=== PATIENT | female | born 1990 | race Caucasian/White ===

== ENCOUNTER 2025-01-30 10:57 | Emergency (ER) | payer OTHER, SELFPAY ==
--- NOTE | ~2025-01-30 | XR_ITS ---
EXAMINATION: XR chest 2V, 01/30/2025 12:05 TERRITORY SALES CONSULTANT HISTORY: shortness of breath COMPARISON: No comparisons available. Technique: 2 views obtained. Findings: The lungs are clear, no effusion. No pneumothorax. Heart is normal size. Mediastinal and hilar contours are within normal limits. Bony thorax no acute abnormality. Impression: No acute cardiopulmonary abnormality. Reviewed, dictated and finalized at location P. ITORY SALES CONSULTANT Impression: No acute cardiopulmonary abnormality.
[2025-01-30 11:02] VITALS: BP 124/81; PULSE 141; RESP 18; TEMP 36.6; O2SAT 100
--- NOTE | 2025-01-30 11:09 | ECG_ITS ---
Test Date: 2025-01-30 11:14:59 Measurements Intervals [place] Rate: 137 P: 37 AR: 141 QRS: 69 QRSD: 90 T: 32 QT: 370 QTc: 560 Interpretive Statements SINUS TACHYCARDIA DELAYED PRECORDIAL R/S TRANSITION NONSPECIFIC T-WAVE ABNORMALITY- DIFFUSE LEADS BASELINE ARTIFACT- I, III, AVR, AVL ABNORMAL ECG No previous ECG available for comparison Electronically Signed On 01-30-2025 11:19:23 BOAT PILOT by Aris Sahu D.O.
--- OUTSIDE RECORDS SUMMARY | 2025-01-30 12:02 | XMS_ITS | Clinical Summary ---
Author Organization [facility] Address [address] [place] [id number] Care Team Providers Care Furnace Setter Name Role Phone Linda Niño MD Unavailable [phone] Nancy Marquez MD Primary Care Provide r Mansi Modi NP Unavailable [phone] Allergies Active Allergy Reactions Criticality Noted Date Comments Cephalexin Hives Medium 12/23/2021 Clindamycin Hives Medium 12/24/2021 Hydrocodone-Acetaminophen Hives Medium 02/16/2024 Latex Rash Medium 12/24/2021 Permethrin Hives Medium 12/24/2021 Pyrethrins Hives Medium 12/24/2021 Medications famotidine (PEPCID) 20 mg tabletIndication s:Dyspepsia Take 2 tablets (40 mg total) by mouth 2 (two) times a day 11/14/19 22 Active fexofenadine (IMMANUEL) 180 mg tablet Take 1 tablet (180 mg total) by mouth daily Active olopatadine (PATADAY) 0.2 % ophthalmic solution INSTILL 1 DROP IN BOTH EYES DAILY 2.5 mL 11 10/25/19 24 Active albuterol HFA (ProAir HFA) 90 mcg/actuation inhalerIndicatio ns:Mild intermittent asthma without complication Inhale 2 puffs every 4 (four) hours as needed for wheezing or shortness of breath 8.5 g 1 03/28/19 25 026 Active metoprolol XL (TOPROL-XL) 25 mg extended release tablet Take 1 tablet (25 mg total) by mouth daily 90 tablet 1 12/12/19 25 026 Active adalimumab-adaz 40 mg/0.4 mL pen injectorIndicati ons:Arthralgia, unspecified joint,Uveitis INJECT 40MG UNDER THE SKIN EVERY 14 DAYS 2.4 mL 12/21/19 25 Active busPIRone (BUSPAR) 5 mg tablet Take 1 tablet (5 mg total) by mouth 3 (three) times a day 90 tablet 1 12/23/19 25 Active azaTHIOprine (IMURAN) 50 mg tabletIndication s:autoimmune disease Take 0.5 tablets (25 mg total) by mouth daily 15 tablet 2 01/11/20 25 026 Active varicella-zoster (SHINGRIX) 50 mcg/0.5 mL vaccineIndicatio ns:Prevention of Herpes Zoster,Immunosup pressed patient. Inject 0.5 mL into the muscle as instructed every 30 (thirty) days for 2 doses 0.5 mL 1 01/13/20 25 025 Active predniSONE (DELTASONE) 5 mg tablet Take 1 tablet (5 mg) by mouth daily for 20 days 20 tablet 01/09/20 25 025 predniSONE (DELTASONE) 1 mg tablet Take 4 tablets (4 mg) by mouth daily for 31 days, THEN 3 tablets (3 mg) daily for 31 days, THEN 2 tablets (2 mg) daily for 28 days, THEN 1 tablet (1 mg) daily. 304 tablet 01/30/20 25 025 Discontinu ed(Error) Active Problems Problem Noted Date Diagnosed Date Class 1 obesity due to exces s calories without serious comorbidity with body mass index (BMI) of 34.0 to 34.9 in adult 03/28/2024 Assessment & Plan (12/11/2024 3:35 PM CDT): Assessment & Plan (06/02/2024 8:32 AM CDT): She was counseled on the importance of maintaining a healthy weight and the risks of obesity. Weight loss recommended. Assessment & Plan (03/28/2024 3:32 PM CLINIC SCHEDULER): She was counseled on the importance of maintaining a healthy weight and the risks of obesity. Weight loss recommended. Encourage 150min/ week of exercise Encourage 1500 calories in a day for weight loss Tachycardia with heart rate 100-120 beats per mi nute 03/28/2024 Assessment & Plan (12/11/2024 3:35 PM CDT): Assessment & Plan (06/02/2024 8:30 AM CDT): Chronic At goal Cont metoprolol F/u in 6 months Assessment & Plan (03/28/2024 3:58 PM CLINIC SCHEDULER): New concern Associated symptoms Chronic Not at goal Recommend cutting back on caffeine Could also be anxiety induced Will get 48hr holter monitor to evaluate for an arrhythmia Cmp and tsh ordered F/u in 2 months Anxiety 03/28/2024 Assessment & Plan (12/11/2024 3:35 PM CDT): Chronic buspar 5mg 3x/day Denies si/hi Assessment & Plan (06/01/2024 12:40 PM CDT): Chronic buspar 5mg 3x/day Denies si/hi Encourage exercise to help reduce anxiety Referral to therapy given last visit Assessment & Plan (03/28/2024 4:01 PM CLINIC SCHEDULER): Chronic Not at goal ISHAN-7 Feeling nervous, anxious, or on edge: Nearly every day Not being able to stop or control worrying: Nearly every day Worrying too much about different things: Nearly every day Trouble relaxing: Nearly every day Being so restless that it's hard to sit still: Several days Becoming easily annoyed or irritable: Nearly every day Feeling afraid as if something awful might happen: Several days Total Score: 17 Will start buspar 5mg daily for 1 week and go up to 3x/day Denies si/hi Encourage exercise to help reduce anxiety Referral to therapy given F/u in 2 months for monitoring Acute pain of both knees 09/09/2022 Assessment & Plan (09/09/2022 5:00 PM CDT): New Possibly result of recent steroid use L>R Will get xray of the left knee as that is where she feels the nodule Referral to physical therapy continue ibuprofen prn F/u if no improvement. Can consider pain management Allergic conjunctivitis of both eyes 07/14/2022 Assessment & Plan (08/18/2022 10:15 AM CDT): Reduce pred forte (PF) to PRN use Assessment & Plan (08/04/2022 1:25 PM CDT): Decrease pred forte (PF) to daily x 1 week, then once every other day until see Assessment & Plan (07/23/2022 9:24 AM CDT): Signs appear more allergic in nature. No proptois. Decrease pred forte (PF) to BID both eyes (OU) Cont Pataday every day (QD) OU Migraine without aura and wi th status migrainosus, not intractable 06/29/2022 Assessment & Plan (03/27/2024 12:33 PM CLINIC SCHEDULER): Stable / clinically quiescent. Will continue to monitor. Assessment & Plan (06/29/2022 10:17 AM CDT): Stable / clinically quiescent. Will continue to monitor. Mild intermittent asthma without complication Assessment & Plan (03/27/2024 12:34 PM CLINIC SCHEDULER): She has not needed an inhaler in years Continue albuterol inhaler for as needed Assessment & Plan (06/29/2022 10:19 AM CDT): She has not needed an inhaler in years Will send an albuterol inhaler for as needed Urticaria 06/29/2022 Assessment & Plan (06/29/2022 10:43 AM CDT): Stable Continue with immanuel and benadryl Follow-up with screw driver operator. Encounter for wellness examination 06/25/2022 Assessment & Plan (12/11/2024 3:35 PM CDT): Orders: CBC with auto differential; Future Comprehensive metabolic panel; Future Hemoglobin A1c; Future Lipid panel; Future Thyroid Function Barnwell; Future Assessment & Plan (03/28/2024 4:02 PM CLINIC SCHEDULER): Order CBC, cmp, lipid, hgb a1c, TSH w/ reflex to t4 Pap smears: managed by ob F/u in 1 year for annual Assessment & Plan (06/29/2022 10:43 AM CDT): Ordered CBC, cmp, lipid, hgb a1c, hiv TSH w/ reflex to t4 Pcv20:will consider it at next visit. Declines today She has been vaccinated for chicken pox with both dosage Pap smears: managed by ob, will get records F/u in 1 year for annual Bilateral ocular hypertension 05/01/2022 Overview (04/03/2024): Diagnosis: OHTN OU Tmax: Gonio: Open OU 01/31/2024 Pachy: 606/606 Last Nguyen visual field (HVF): Full OU 01/31/2024 Last RNFL: 101/106 04/03/2024 Assessment & Plan (01/08/2025 4:22 PM CLINIC SCHEDULER): IOP is at target today given thick pachy. Target of 30 OU - HVF due 01/2025, RNFL 04/2025 Assessment & Plan (10/06/2024 10:26 AM CDT): Previously elevated IOP (28 mmHg) managed with latanoprost in the past but not currently on any medications. Current OCT and visual field tests are normal. Corneal thickness may cause overestimation of IOP. - Reinitiate latanoprost if IOP exceeds 30 mmHg - HVF due 01/2025, RNFL 04/2025 Assessment & Plan (04/04/2024 8:37 PM CLINIC SCHEDULER): Previously elevated IOP (28 mmHg) managed with latanoprost. Current OCT and visual field tests are normal. Corneal thickness may cause overestimation of IOP. Decision to discontinue latanoprost and monitor IOP, with potential reinitiation if IOP exceeds 30 mmHg due to long-term risks. - Discontinue latanoprost in both eyes - Monitor IOP and visual field for any progression - Reinitiate latanoprost if IOP exceeds 30 mmHg - HVF due 01/2025, RNFL 04/2025 Assessment & Plan (02/01/2024 10:23 PM CLINIC SCHEDULER): Thick corneas, normal HVF today. If RNFL full will stop latanprost and observe Assessment & Plan (10/15/2023 1:29 PM CDT): Her IOP is elevated to 28 OU today. Unclear what her target should be, we will need to get an RNFL and pachymetry, as well as a repeat visual valle. Given current IOP, discussed treatment verses observation. We will start latanoprost once a day in both eyes. Assessment & Plan (02/23/2023 8:30 AM CLINIC SCHEDULER): IOPs adequate off drops, monitor Assessment & Plan (09/22/2022 9:01 AM CDT): Elevated today without glaucomatous damage on exam Using maxitrol BID and forgot Cosopt this am Cosopt levi PLAN Stop maxitrol as above Continue cosopt BID Stop Cosopt and try latanoprost qhs Assessment & Plan (08/18/2022 10:16 AM CDT): Cont Cosopt BID both eyes (OU) until next visit Assessment & Plan (08/04/2022 8:22 AM CDT): Cont Cosopt BID OU Assessment & Plan (07/14/2022 10:26 AM CDT): Cont Cosopt BID OU Assessment & Plan (07/01/2022 2:31 PM CDT): Restart Cosopt BID OU Assessment & Plan (05/01/2022 8:04 AM CLINIC SCHEDULER): Start Cosopt BID OU Have eye pressure checked in 2-3 weeks, will send letter to Dr. Quinn to see if he can do this, otherwise, we will have her come back up here. High risk medication use 04/17/2022 Assessment & Plan (09/22/2022 9:02 AM CDT): Lab Results Component Value Date WBC 7.0 07/07/2022 HGB 13.4 07/07/2022 LABPLAT 293 07/07/2022 CREATININE 0.70 07/07/2022 AST 24 07/07/2022 ALT 15 07/07/2022 Tb test NEG 12/26/21 Lab Results Component Value Date HEPBCAB Nonreactive 07/07/2022 HEPCAB Nonreactive 07/07/2022 PLAN HBV/HCV screening CBC, CMP q2-3 months Assessment & Plan (07/01/2022 10:01 AM CDT): Lab Results Component Value Date WBC 4.9 12/26/2021 HGB 12.9 12/26/2021 LABPLAT 244 12/26/2021 CREATININE 0.66 12/26/2021 AST 18 12/26/2021 ALT 24 12/26/2021 Tb test NEG 12/26/21 No results found for: HAV, HEPAIGM, HEPBIGM, HEPBCAB, HBEAG, HEPCAB PLAN HBV/HCV screening CBC, CMP q2-3 months Assessment & Plan (05/02/2022 10:37 AM CLINIC SCHEDULER): Lab Results Component Value Date WBC 4.9 12/26/2021 HGB 12.9 12/26/2021 LABPLAT 244 12/26/2021 CREATININE 0.66 12/26/2021 AST 18 12/26/2021 ALT 24 12/26/2021 Tb test NEG 12/26/21 No results found for: HAV, HEPAIGM, HEPBIGM, HEPBCAB, HBEAG, HEPCAB PLAN Take Oscal+D, or similar while on prednisone Call us with worsening fatigue after smaller dose Humira HBV/HCV screening CBC, CMP q2-3 months Assessment & Plan (04/17/2022 3:12 PM CLINIC SCHEDULER): Lab Results Component Value Date WBC 4.9 12/26/2021 HGB 12.9 12/26/2021 LABPLAT 244 12/26/2021 CREATININE 0.66 12/26/2021 AST 18 12/26/2021 ALT 24 12/26/2021 Tb test 12/26/21 No results found for: HAV, HEPAIGM, HEPBIGM, HEPBCAB, HBEAG, HEPCAB PLAN Take Oscal+D, or similar while on prednisone CBC, CMP q2-3 months Will get HBV, HCV with next labs Orbital inflammation, chronic 12/26/2021 Assessment & Plan (01/08/2025 4:21 PM CLINIC SCHEDULER): She has no active inflammation today, just stopped prednisone this weekend. Discussed that it would be better to taper more slowly to give IMT time to work and to ensure that if there is a recurrence it will be mild. Start prednisone 5 mg and taper by 1 mg on the 1st of each month. Continue adalimumab weekly. Will discuss with Dr. Jaramillo whether there is utility in continuing azathioprine 50 mg daily to prevent ADA. Assessment & Plan (10/06/2024 10:25 AM CDT): She has improvement in her eyelid edema after starting oral prednisone. This is a very unusual appearance for orbital inflammation, but is consistent with her previous episode. She has previously done well on adalimumab, I would recommend restarting this. We are working with rheumatology to get insurance authorization for that. Use 60 mg prednisone for 2 weeks, then 50 mg for 1 week, then 40 mg for 1 week, then 30 mg for 1 week, then 25 mg for 1 week, then 20 mg for 1 week, then 15 mg for 1 week, then 12.5 mg for 1 week, then 10 mg for 1 week, then continue 7.5 mg thereafter Assessment & Plan (09/04/2024 4:35 PM CDT): She does have eyelid edema but no proptosis, double vision, or chemosis suggestive of orbital inflammation. Recommend cold compresses BID to help with swelling. Will re-evaluate in 1 month to ensure that this resolves. Assessment & Plan (04/04/2024 8:37 PM CLINIC SCHEDULER): She has no active inflammation today. Consider taper of adalimumab in coordination with licensed massage practitioner. Recommend gradual taper based on evidence in uveitis, would do this in June - Recommend taper of adalimumab in June by spacing doses to every three weeks for three months, then every four weeks for three months, then discontinue Assessment & Plan (03/27/2024 12:33 PM CLINIC SCHEDULER): Cont following with specialist for management Assessment & Plan (02/01/2024 10:24 PM CLINIC SCHEDULER): She has no active inflammation today on adalimumab every other week, I would prefer to continue on adalimumab until June of 2024, can consider weaning at this point. Assessment & Plan (10/15/2023 1:30 PM CDT): She has no active inflammation today. She has been off of adalimumab, but is going to restart this through Rheumatology. Would prefer to continue on adalimumab until June of 2024, can consider weaning at this point. Assessment & Plan (02/23/2023 8:26 AM CLINIC SCHEDULER): Quiet on Humira, no lid edema. Schedule next visit with Dr. Mathur. 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 S/p orbitotomy biopsy 01/27/22 which showed fairly nonspecific inflammation, slightly more B than T cells and relatively elevated IgG4 Inactive today on Humira since 04/2022 PLAN continue Humira q2w Assessment & Plan (08/04/2022 1:23 PM CDT): undifferentiated vs IgG4 (status post (s/p) orbitotomy biopsy 01/27/22) no proptosis patient has confounding lid disease decrease pred forte (PF) to daily x 1 wk, then decrease to once every other day until seen Assessment & Plan (07/01/2022 10:01 AM CDT): 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 We decided to continue Humira for now. 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 After next Humira dose, if your inflammation is stable, reduce prednisone to 15mg daily for 2 weeks, then 10mg daily if inflammation is still improving Humira preferred given speed and efficacy. 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 Assessment & Plan (08/04/2022 1:24 PM CDT): Complete course of azithromycin Rec pfats prn Cont maxitrol to the base of the lid margins bid Periorbital edema of both eyes 07/14/2022 10/06/2024 Assessment & Plan (10/23/2022 4:31 PM CDT): Denies usage new skin cream/products, uses Cetaphil Assessment & Plan (07/23/2022 9:24 AM CDT): Cold compresses nightly, cont Benadryl qhs Assessment & Plan (07/14/2022 10:26 AM CDT): left eye (OS)>OD, h/o chronic orbital inflammation. Exam most c/w allergies today papillary response left eye (OS)>>OD. No proptosis. Full eoms. Start pred forte (PF) QID both eyes (OU), rec Benadryl at bedtime (qhs) + cold compresses nightly. Pt ed to call if no improvement (NI)/worsening sx over the next 24-48 hours. Orbital disorder 01/02/2022 02/01/2024 Overview (01/02/2022): Added automatically from request for surgery [id number] Encounters Date Type Department Care Team Description 01/29/2025 Orders Only [facility] Medicine Rheumatology [address] [facility] 5th [place] [address] [place] [address] Tri Jaramillo MD Leg swelling (Primary Dx) 01/15/2025 Telephone [facility] Medicine Cardiology [address] [facility] [address] [place] [address] [place] [address] Nancy Modi 01/12/2025 Results Follow-Up [facility] Medicine Rheumatology [address] [facility] [address] [place] [address] [place] [address] Tri Jaramillo MD CBC with auto differential, Comprehensive metabolic panel 01/12/2025 Orders Only [facility] Medicine Rheumatology [address] [place] [address] [place] [address] Tri Jaramillo MD 01/10/2025 8:46 AM CLINIC SCHEDULER - 01/10/2025 11:59 PM CLINIC SCHEDULER Hospital Encounter [facility] [address] [place] [address] History of multiple miscarriages Discharge Disposition: Discharge to home or self care 01/10/2025 8:30 AM CLINIC SCHEDULER Lab [facility] Medicine Endocrinology Metabolism and Lipid [address] [place] [address] [place] [address] High risk medication use 01/10/2025 8:00 AM CLINIC SCHEDULER Office Visit [facility] Medicine Rheumatology [address] [place] [address] [place] [address] Tri Jaramillo MD Orbital inflammation, chronic (Primary Dx); Uveitis; High risk medication use; Encounter for administration of vaccine; History of multiple miscarriages 01/08/2025 3:30 PM CLINIC SCHEDULER Office Visit [facility] Medicine Ophthalmology [address] [place] [id number] Piotr Mathur MD Orbital inflammation, chronic (Primary Dx); Bilateral ocular hypertension 12/11/2024 2:00 PM CDT Office Visit [facility] at [address] [place] [address] Nancy Lofton MD Tachycardia with heart rate 100-120 beats per minute (Primary Dx); Anxiety; Class 1 obesity due to excess calories without serious comorbidity with body mass index (BMI) of 34.0 to 34.9 in adult; Encounter for wellness examination 12/11/2024 Orders Only [facility] at [address] [place] [address] Nancy Lofton MD Tachycardia with heart rate 100-120 beats per minute (Primary Dx); History of chest pain 11/22/2024 Telephone [facility] [address] [facility] [address] [place] [address] Santos [facility] from Last 3 Months Immunizations Immunization Administration Dates Next Due Influenza, Unspecified 12/11/2024(Deferr ed: Patient Refused),06/02/2024(Deferred: Patient Refused),03/28/2024(Deferred: Patient Refused),12/19/2023(Deferred: Patient Refused),12/18/2022(Deferred: Patient Refused),12/18/2022(Deferred: Patient Refused),09/09/2022(Deferred: Patient Refused),05/28/2022(Deferred: Patient Refused),03/01/2022(Deferred: Patient Refused),09/29/2021(Deferred: Patient Refused) Pneumococcal Conjugate Pcv20 01/10/2025,10/14/19 23 Tdap 01/28/2023 Surgical History Surgery Date Site/Laterality Comments TONSILLECTOMY AND ADENOIDECTOMY 1 yo SALPINGECTOMY ectopic 2015 ORBITOTOMY 01/27/2022 Right ABDOMINAL SURGERY laparoscopic salpingectomy WISDOM TOOTH EXTRACTION 02/03/2024 Medical History Medical History Date Comments Preseptal cellulitis of right eye Migraine Asthma Asthma due to environmental allergies PONV (postoperative nausea and vomiting) Anxiety Teen years Sleep apnea was 2/3 yrs old 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 Menstrual problem teen years GERD (gastroesophageal reflux disease) LAST FEW YEARS Arthritis Endometriosis Ovarian cyst Family History Medical History Relation Name Comments Drug abuse Brother david green Alcohol abuse Father chey green Drug abuse Father chey green Hepatitis Father chey green Cancer Father's Brother raul green Leukemia Father's Brother raul green Kidney disease Maternal Grandfather jaye wilder Allergies Maternal Grandmother cindy wilder Anemia Maternal Grandmother cindy wilder Arthritis Maternal Grandmother cindy wilder Asthma Maternal Grandmother cindy wilder Diabetes Maternal Grandmother cindy wilder Heart disease Maternal Grandmother cindy wilder Heart failure Maternal Grandmother cindy wilder Hypertension Maternal Grandmother cindy wilder Miscarriages / Stillbirths Maternal Grandmother cindy wilder Rheum arthritis Maternal Grandmother cindy wilder Allergy (severe) Mother zay taff Arthritis Mother zay taff Asthma Mother zay taff COPD Mother zay taff Cataracts Mother zay taff Cholelithiasis Mother zay taff Diabetes Mother zay taff Diverticulosis Mother zay taff Glaucoma Mother zay taff Hypertension Mother zay taff Miscarriages / Stillbirths Mother zay taff Rashes / Skin problems Mother zay taff Asthma Mother's Sister 1 donny wilder Hypertension Mother's Sister 1 donny wilder defects Mother's Sister 2 Crissy Wilder Developmental delay Mother's Sister 2 Crissy Wilder Glaucoma Other Arthritis Paternal Grandfather chey taff sr Hearing loss Paternal Grandfather chey tafsanti sr Stroke Paternal Grandmother eunice combs taff Allergies Sister nancy tonglisandro Allergy (severe) Sister nancy tonglisandro Anemia Sister nancy tonglisandro Diverticulosis Sister nancy tongay Rashes / Skin problems Sister nancy tongay Ulcerative colitis Sister nancy tonglisandro Anesthesia problems Neg Hx Relation Name Status Comments Brother david green Father chey green Father's Brother raul green Maternal Grandfather jaye wilder Maternal Grandmother cindy wilder Mother zay taff Mother's Sister 1 donny wilder Mother's Sister 2 Crissysindy Sernaton Other Paternal Grandfather chey taff sr Paternal Grandmother eunice combs taff Sister nancy san Social History Tobacco Use Types Packs/Day Years Used Date Smoking Tobacco: Former Cigarettes Q uit: 01/07/2005 Passive Smoke Exposure: Past Smokeless Tobacco: Never Tobacco Cessation:Counseling Given: Not Answered Social Connection and Isolation Panel Answer Date Recorded In a typical week, how many times do you talk on the phone with family, friends, or neighbors? More than three times a week 07/27/2023 How often do you get togethe r with friends or relatives? Once a week 07/27/2023 How often do you attend chur ch or congregation services? Never 07/27/2023 Do you belong to any clubs o r organizations such as christian groups, unions, fraternal or athletic groups, or school groups? No 07/27/2023 How often do you attend meet ings of the clubs or organizations you belong to? Not asked 07/27/2023 Are you , , di vorced, , never , or living with a partner? Living with partner 07/27/2023 AUDIT-C Answer Date Recorded Q1: How often do you have a drink containing alcohol? Never 08/30/2024 Q2: How many drinks containi ng alcohol do you have on a typical day when you are drinking? Patient does not drink Q3: How often do you have si x or more drinks on one occasion? Never 08/30/2024 Overall Financial Resource Strain (CARDIA) Answe r Date Recorded How hard is it for you to pa y for the very basics like food, housing, medical care, and heating? Not very hard 07/27/2023 PHQ-2 Answer Date Recorded PHQ-2 Total Score (If total score is 3 or more points, staff should administer the PHQ-9) 0 12/11/2024 [facility] - Occupational Stress Questionnaire Answer Date Recorded Do you feel stress - tense, restless, nervous, or anxious, or unable to sleep at night because your mind is troubled all the time - these days? Only a little 07/27/2023 Exercise Vital Sign Answer Date Recorde d On average, how many days pe r week do you engage in moderate to strenuous exercise (like a brisk walk)? 5 days On average, how many minutes do you engage in exercise at this level? Patient declined 07/27/2023 Hunger Vital Sign Answer Date Recorded Within the past 12 months, y ou worried that your food would run out before you got the money to buy more. Never true 07/27/19 24 Within the past 12 months, t he food you bought just didn't last and you didn't have money to get more. Never true 07/27/2023 PRAPARE - Transportation Answer Date Re corded In the past 12 months, has l ack of transportation kept you from medical appointments or from getting medications? No 06/30 In the past 12 months, has l ack of transportation kept you from meetings, work, or from getting things needed for daily living? No 07/27/2023 Housing Stability Vital Sign Answer Enmanuel e Recorded In the last 12 months, was t here a time when you were not able to pay the mortgage or rent on time? No 01/25/2023 In the last 12 months, how many places have you lived? 1 01/25/2023 In the last 12 months, was t here a time when you did not have a steady place to sleep or slept in a long term (including now)? 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 Not on file Not on file Obstetrics History Para Term AB IAB SAB Ectopic Multiple Livin g Live Births 4 4 3 1 Date Outcome GA Total Labor Labor/2nd/3rd Weight Sex Type Anes PTL Marianne A1 A5 Name Clin SAB SAB SAB Ectopic Last Filed Vital Signs Vital Sign Reading Time Taken Comments Blood Pressure 136/82 01/10/2025 7:54 AM CLINIC SCHEDULER Pulse 116 01/10/2025 7:54 AM CLINIC SCHEDULER Temperature 36.7 C (98.1 F) 01/10/2025 7:54 AM CLINIC SCHEDULER Respiratory Rate 16 12/11/2024 1:45 PM CDT Oxygen Saturation 99% 12/11/2024 1:45 PM CDT Inhaled Oxygen Concentration - - Weight 84.4 kg (186 lb) 01/10/2025 7:54 AM CLINIC SCHEDULER Height 154.9 cm (5' 1) 01/10/2025 7:54 AM CLINIC SCHEDULER Body Mass Index 35.14 01/10/2025 7:54 AM CLINIC SCHEDULER Plan of Treatment Health Maintenance Due Date Last Done Comments Cervical Cancer Screening 1988 Zoster Vaccine (1 of 2) 08/03/2007 Regular Well Visit/Exam 18-64 03/28/2025 03/28/2024, 06/29/2022 Influenza Vaccine (#1) 2025 Postp oned from 10/30/2024 (Patient declined, but will receive in the future) Depression Screening 12/11/2025 12/11/2024, 06/02/2024, 03/28/2024, Additional history exists HPV Vaccines (1 - 3-dose SCDM series) 12/11/2025 Postponed from 08/03/2015 (Patient declined, but will receive in the future) DTaP/Tdap/Td Vaccine (2 - Td or Tdap) 01/28/2033 01/28/2023 Hepatitis B Screening Completed 07/07/2022 Hepatitis C Screening Completed 07/07/2022 Pneumococcal vaccine <65 Completed 01/10/2025, 09/29 Varicella Vaccines Discontinued Medical Devices Implanted Type Area Rental Counter Clerk Device Identifier Shelf Expiration Date Model / Serial / Lot Nexplanon Left: Arm Description: control Procedures Procedure Name Priority Date/Time Associated Diagnosis Comments LUPUS ANTICOAGULANT PANEL PLUS REFLEXES Routine 01/10/2025 8:46 AM CLINIC SCHEDULER History of multiple miscarriages COMPREHENSIVE METABOLIC PANEL Routine 01/10/2025 8:46 AM CLINIC SCHEDULER High risk medication use CBC WITH AUTO DIFFERENTIAL Routine 01/10/2025 8:46 AM CLINIC SCHEDULER High risk medication use HEPATITIS C ANTIBODY Routine 07/07/2022 8:50 AM CDT Screening for viral disease from Last 3 Months or Most Recently Relevant to Health Maintenance Results * Lupus Anticoagulant Panel plus Reflexes (01/10/2025 8:46 AM CLINIC SCHEDULER) PT 10.8 10.2 - 13.5 sec INR 0.95 0.90 - 1.20 [facility] Comment: Interpretive data Oral anticoagulant therapeutic ranges: Venous thromboembolism prophylaxis or treatment: 2.0-3.0 CARDIOLOGY Standard range: 2.0-3.0 High-intensity range: 2.5-3.5 Refer to indication-specific guidelines for appropriate target ranges for prosthetic heart valve replacement. Current interpretive data was last revised on 2019. aPTT 28 26 - 38 sec [facility] Comment: Interpretive Data Heparin therapeutic range: 66.0 - 100.0 seconds. Range based on correlation with therapeutic heparin activity range of 0.3 - 0.7 Units/mL. DRVVT screen ratio 0.96 0.00 - 1.20 Ratio [facility] S[facility] Screen Ratio 0.91 0.00 - 1.16 Ratio [facility] Lupus anticoagulant, interp Negative [facility] Comment: Interpretive data Lupus anticoagulants (LA) are acquired autoantibodies that interfere with invitro clotting in a phospholipid-dependent manner and are associated with an increased risk of thromboembolic events and complications. Routine APTT and PT reagents are not sensitive to inhibition by LA, and should not be used as screening tests. The laboratory follows ISTH 2009 guidelines (Roberto, 2009) for LA testing and interpretation: Two sensitive methods performed in parallel improve sensitivity. One activates the intrinsic pathway (Silica-APTT) and one activates the common pathway (dilute Brendon's viper venom time - dRVVT). Each method begins with a SCREEN step, and if neither is prolonged, no further testing is performed and the interpretation is: NO LA DETECTED. If either screening test is prolonged, then additional steps are performed to provide specificity. A POSITIVE LA result occurs if either one or both tests produce a positive CONFIRM result. An INDETERMINATE result means results cannot distinguish between coagulopathy and a weak LA. Consider retesting when PT/INR is less prolonged, if clinical indicated. To support laboratory confirmation of antiphospholipid syndrome, persistence of a positive LA result should be verified by repeat testing at least 12 weeks later (Omega, 2006). Prior to LA testing, the laboratory screens patient plasma samples for evidence of heparin contamination, which is neutralized prior to LA testing, and the following interfering conditions which require canceling LA testing: INR >3.0, fibrinogen < 100 mg/dl, use of direct oral or IV anticoagulants other than heparin. References: 1) Kaleigh Schaeffer, Papi A, Mariya JH, Orrickey TL, Buck M, De Barbara PG. Update of the guidelines for lupus anticoagulant detection. J Thromb Haemost. 2009; 7:9830-6500. 2. Omega Brandt et al. International consensus statement on an update of the classification criteria for definite antiphospholipid syndrome (APS). J Thromb Haemost. 2006; 4:295-306. Current interpretive data was last revised on 2018 Blood 01/10/2025 8:46 AM CLINIC SCHEDULER 01/10/2025 10:38 AM CLINIC SCHEDULER us Tri Jaramillo MD LAB BLOOD ORDERABLES Carmen lim Result [facility] Department [place] [address] * (ABNORMAL) CBC with auto differential (01/10/2025 8:46 AM CLINIC SCHEDULER) White Blood Count 8.4 3.6 - 11.2 K/uL [facility] RBC 4.60 3.63 - 4.92 M/uL [facility] Hemoglobin 13.8 11.9 - 15.5 g/dL [facility] Hematocrit 41.1 36.1 - 44.3 % [facility] MCV 89.3 80.0 - 97.6 fL [facility] MCH 30.1 26.7 - 33.7 pg [facility] MCHC 33.7 32.7 - 35.5 g/dL [facility] RBC Dist Width 14.1 12.3 - 17.0 % [facility] Platelet Count 294 140 - 440 K/uL [facility] MPV 9.5 6.8 - 10.4 fL [facility] Neutrophils % 49.9 38.7 - 74.5 % [facility] Lymphocyte % 35.5 20.0 - 54.3 % [facility] Monocytes % 9.6 4.3 - 13.5 % [facility] Eosinophils % 4.4 0.0 - 6.0 % [facility] Basophil % 0.6 0.0 - 3.0 % [facility] Absolute Neutrophil 4.2 1.8 - 6.6 K/uL [facility] Absolute Lymphocyte 3.0 0.8 - 3.3 K/uL [facility] Absolute Monocyte 0.8 0.2 - 1.2 K/uL [facility] Absolute Eosinophil 0.4 0.0 - 0.5 K/uL [facility] Absolute Basophil 0.1 0.0 - 0.2 K/uL [facility] Nucleated RBC % 0.5(H) 0.0 - 0.4 /100 WBC [facility] Blood 01/10/2025 8:46 AM CLINIC SCHEDULER 01/10/2025 9:32 AM CLINIC SCHEDULER us Tri Jaramillo MD LAB BLOOD ORDERABLES Carmen l Result [facility] * (ABNORMAL) Comprehensive metabolic panel (01/10/2025 8:46 AM CLINIC SCHEDULER) Total Protein 7.2 6.1 - 8.4 g/dL [facility] Albumin 4.2 3.5 - 5.2 g/dL [facility] Calcium 9.4 8.6 - 10.3 mg/dL [facility] BUN 12 7 - 23 mg/dL [facility] Alk Phos, Total 60 35 - 129 IU/L [facility] AST (SGOT) 19 11 - 47 IU/L [facility] ALT (SGPT) 28 6 - 53 IU/L [facility] Creatinine 0.69 0.60 - 1.10 mg/dL [facility] Sodium 143 135 - 145 mmol/L [facility] Potassium INTERFERENCE - HEMOLYSIS 3.3 - 5.1 mmol/L [facility] Chloride 108(H) 95 - 107 mmol/L [facility] CO2 Content 25 21 - 29 mmol/L [facility] Glucose 105(H) 64 - 99 mg/dL [facility] Comment: NONFASTING GLUCOSE RANGE = 64-199 mg/dL FASTING GLUCOSE 64 - 99 = NORMAL FASTING GLUCOSE 100 - 125 = IMPAIRED FASTING GLUCOSE FASTING GLUCOSE >=126 = PROVISIONAL DIAGNOSIS OF DIABETES eGFR >90.0 >60.0 mL/min/1 .73 m2 [facility] Comment:eGFR is calculated b y the CKD-EPIcr() equation (2020). Total Bilirubin 0.30 0.20 - 1.40 mg/dL [facility] Blood 01/10/2025 8:46 AM CLINIC SCHEDULER 01/10/2025 9:32 AM CLINIC SCHEDULER Narrative [facility] - 01/10/2025 11:20 AM CLINIC SCHEDULER Specimen Hemolyzed Tri Jaramillo MD LAB BLOOD ORDERABLES Carmen l Result [facility] * Hepatitis C antibody (07/07/2022 8:50 AM CDT) Hep C Ab Nonreactive Nonreactive [facility] Comment: Interpretive Data Nonreactive: Antibodies to HCV not detected. Does NOT exclude the possibility of recent exposure to HCV. Equivocal: Equivocal for HCV antibodies. Supplemental molecular testing will be automatically performed to determine infection status in accordance with current CDC screening recommendations. Reactive: Positive for HCV antibodies. This may represent current or past HCV infection. Supplemental molecular testing will be automatically performed to determine current infection status in accordance with current CDC screening recommendations. Interpretive data was last revised on 2019. Testing performed by: [facility], [address] [place] [address]., [id number] Blood 07/07/2022 8:50 AM CDT 07/07/2022 3:26 PM CDT Misa Leslie MD PhD LAB MICROBIOL OGY - GENERAL ORDERABLES Edited Result - Final [facility] Department [place] [address] from Last 3 Months or Most Recently Relevant to Health Maintenance Insurance [address] [place] [address] [employer] [facility] HMO [facility] HMO Care Teams Furnace Setter Relationship Specialty Start Date End Date Nancy Marquez MD [address] [place] [address] [address] PCP - General Family Medicine 06/29/22 Linda Niño MD [address] [place] [address] Referring Physician Ophthalmology 04/06/22 Mansi Modi NP [address] [place] [id number] Nurse Practitioner Obstetrics and Gynecology 07/10/24
--- OUTSIDE RECORDS SUMMARY | 2025-01-30 12:02 | XMS_ITS | Clinical Summary ---
Author Organization [facility] Care Team Providers Care Fire Prevention Specialist Name Role Phone Unavailable Primary Care Provider Unavailabl e Social History Tobacco Use Types Packs/Day Years Used Date Smoking Tobacco: Never Assessed Comments Unknown Sex and Gender Information Value Date Recorded Sex Assigned at Not on file Legal Sex Female 3:[address] Gender Identity Not on file Sexual Orientation Not on file Plan of Treatment Health Maintenance Due Date Last Done Comments Hepatitis C Virus (HCV) Screening 1988 TdaP Immunization 1988 Hepatitis B Immunization (1 of 3 - 19+ 3-dose series) 08/03/2007 Pap Smear 2009 Human Papillomavirus (HPV) Immunization (1 - 3-dose SCDM series) 08/03/2015 Cervical Cancer Screening (CCS) 2018 HPV/Cotest 2018 Influenza Immunization (#1) 2024 SARS-COV-2 Immunization ( season) 2024 Respiratory Syncytial Virus (RSV) Immunization (Adult) (1 - 1-dose 75+ series) 08/03/2063 Meningococcal Immunization (ACWY) Aged Out No longer eligible based on patient's age to complete this topic Pneumococcal Immunization Combined Aged Out No longer eligible based on patient's age to complete this topic Rotavirus Immunization Aged Out No lo nger eligible based on patient's age to complete this topic
--- OUTSIDE RECORDS SUMMARY | 2025-01-30 12:03 | XMS_ITS | Encounter Summary ---
Author Organization [facility] Address [address] [place] [address] Phone Care Team Providers Care Boom Crane Operator Name Role Phone Linda Niño MD Unavailable [phone] Nancy Marquez MD Primary Care Provide r Mansi Modi NP Unavailable [phone] Reason for Referral * Diagnostic Imaging (Routine) - Pending Review Specialty Diagnoses / Procedures Referred By Contac t Referred To Contact Diagnoses Leg swelling Procedures US Vein Duplex Lower Extremity Bilateral Complete Tri Jaramillo MD [address] [place] [address] Phone: tel: fax: [facility] (All Locations) Referral ID Status Reason Start Date Expiration Date V isits Requested Visits Authorized [id number] Pending Review 01/29/2025 02/28/2026 1 1 LE AND OUTSOLE SPLITTER Encounter Details Date Type Department Care Team (Late st Contact Info) Description 01/29/2025 Orders Only [facility] Medicine Rheumatology [facility] Advanced Medicine 5th [place] [address] [place] [address] Tri Jaramillo MD [address] [place] [address] Leg swelling (Primary Dx) Social History Tobacco Use Types Packs/Day Years Used Date Smoking Tobacco: Former Cigarettes Q uit: 01/07/2005 Passive Smoke Exposure: Past Smokeless Tobacco: Never Social Connection and Isolation Panel Answer Date Recorded In a typical week, how many times do you talk on the phone with family, friends, or neighbors? More than three times a week 07/27/2023 How often do you get togethe r with friends or relatives? Once a week 07/27/2023 How often do you attend chur ch or caodaism services? Never 07/27/2023 Do you belong to any clubs o r organizations such as zoroastrianism groups, unions, fraternal or athletic groups, or [...] staff should administer the PHQ-9) 0 12/11/2024 [facility] - Occupational Stress Questionnaire Answer Date Recorded [...] place to sleep or slept in a group home (including now)? 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 Not on file Not on file documented as of this encounter Plan of Treatment Scheduled Orders Name Type Priority Associated Diagnoses Orde r Schedule US Vein Duplex Lower Extremity Bilateral Complete Imaging Schedule Routine, Read Routine (OP Routine) Leg swelling Expected: 01/29/2025, Expires: 01/29/2026 documented as of this encounter Visit Diagnoses Diagnosis Leg swelling- Primary Swelling of limb documented in this encounter Care Teams Boom Crane Operator Relationship Specialty Start Date End Date Nancy Marquez MD [address] [place] [address] [address] [place] [address] PCP - General Family Medicine 06/29/22 Linda Niño MD [address] [place] [address] Referring Physician Ophthalmology 04/06/22 Mansi Modi NP [address] [place] [address] Nurse Practitioner Obstetrics and Gynecology 07/10/24 documented as of this encounter
--- OUTSIDE RECORDS SUMMARY | 2025-01-30 12:03 | XMS_ITS | Encounter Summary ---
Author Organization [facility] Address [address] [place] [address] Phone Care Team Providers Care Inhalation Therapy Teacher Name Role Phone Linda Niño MD Unavailable [phone] Nancy Marquez MD Primary Care Provide r Mansi Modi NP Unavailable [phone] Encounter Details Date Type Department Care Team (Late st Contact Info) Description 01/15/2025 Telephone [facility] Medicine Cardiology [address] [facility] Advanced Medicine 8th [place] [address] [place] [address] Nancy Modi Social History Tobacco Use Types Packs/Day Years [...] often do you attend chur ch or judaism services? Never 07/27/2023 Do you belong to any clubs o r organizations such as sabianist groups, unions, fraternal or athletic groups, or [...] staff should administer the PHQ-9) 0 12/11/2024 [facility] - Occupational Stress Questionnaire Answer Date [...] place to sleep or slept in a assisted (including now)? 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 Holter in [facility] ON GRADER * Telephone Encounter - Nancy Modi - 01/15/2025 11:36 AM CST CARDIOLOGY NEW PATIENT RECORDS REVIEW Insurance Information Insurance Library Insurance Provider: Member ID: Group number: Diagnosis and Referring Provider Information (Check for Referrals in [facility]) Cardiac Diagnosis: R00.0 (ICD-10-CM) - Tachycardia with heart rate 100-120 beats per minute Z87.898 (ICD-10-CM) - History of chest pain Referring Provider: PCP Referring Provider Specialty: Referring Provider Phone: Current/Former Iron Handler (if different from referring provider): Current/Former Iron Handler Phone: Questions to Determine Placement for Specialty Clinics Cardiology-Oncology (For new amyloidosis referrals, complete RRS and send to NEW PT POOL and send an encounter to the [facility] to make them aware.) Are you actively undergoing cancer treatments including radiation, chemotherapy, or immunotherapy or is this planned in the future?: no When: Where: Congenital Is this a heart condition that has existed since : no Maternal- Cardiology (Females Only) Are you or had a baby in the past year: no Sports Medicine Do you regularly exercise or play sports: no Are the symptoms or concerns associated with acviity: no Hypertension (If yes, must be referred by MD) Are you a hemodialysis or peritoneal dialysis patient: no Referring provider: Cardiology History Questions Have you been hospitalized for cardiac issues: no When: Where: Have you had an echo: no When: Where: Have you had a stress test: no When: Where: Have you had an EKG: no When: Where: Have you had a holter monitor: yes When: 04/2024 Where: in epic Have you had cardiac imaging(CT or MRI): no Testing/imaging: When: Where: Have you had any procedures (cath, CABG, cardioversion, or ablation): no When: Where: Have you had a sleep study done: no When: Where: Do you have an implantable cardiac device: no Type: Punch Machine Operator: When: Where: Appointment Details Date: 02/07/25 Time: 3:00 PM Location: [facility] Provider: Clarisa ON GRADER documented in this encounter Plan of Treatment Not on file documented as of this encounter Visit Diagnoses Not on filedocumented in this encounter Care Teams Inhalation Therapy Teacher Relationship Specialty Start Date End Date Nancy Marquez MD [address] [place] [address] [address] PCP - General Family Medicine 06/29/22 Linda Niño MD [address] [place] [address] Referring Physician Ophthalmology 04/06/22 Mansi Modi NP [address] [place] [address] Nurse Practitioner Obstetrics and Gynecology 07/10/24 documented as of this encounter
--- OUTSIDE RECORDS SUMMARY | 2025-01-30 12:03 | XMS_ITS | Encounter Summary ---
Author Organization [facility] Address [address] [place] [address] Phone Care Team Providers Care Land Title Examiner Name Role Phone Linda Niño MD Unavailable [phone] Nancy Marquez MD Primary Care Provide r Mansi Modi NP Unavailable Encounter Details Date Type Department Care Team (Latest Contact Info) Description 01/12/2025 Results [facility]-Up [facility] Medicine Rheumatology [address] [facility] Advanced Medicine 5th [place] [address] [place] [address] Tri Jaramillo MD [address] [place] [address] CBC with auto differential, Comprehensive metabolic panel Social History Tobacco Use Types Packs/Day Years [...] often do you attend chur ch or rastafarian services? Never 07/27/2023 Do you belong to any clubs o r organizations such as religion groups, unions, fraternal or athletic groups, or [...] staff should administer the PHQ-9) 0 12/11/2024 [facility]at [facility] - Occupational Stress Questionnaire Answer Date [...] place to sleep or slept in a care home (including now)? 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
[2025-01-30 12:12] LABS: Hematocrit 47.2 % (37.0-47.0); Hemoglobin 15.1 g/dL (12.0-15.0); Immature Granulocyte Percent A 0.6 % (0-0.5); Lymphocytes Absolute Auto 1.48 K/mm3 (0.9-3.2); Mean Corpuscular HGB Conc 32.0 g/dl (32-36); Mean Corpuscular Hemoglobin 29.2 pg (26-34); Mean Corpuscular Volume 91.3 fl (80-100); Nucleated Red Blood Cells Absolute Auto 0.000 K/mm3 (0.0-0.012); Nucleated Red Blood Cells Perc 0.0 % (0.0-0.2); Platelet Count Result 438 k/mm3 (150-375); Red Blood Count 5.17 M/mm3 (4.2-5.4); White Blood Count 17.1 K/mm3 (4.5-10.0)
[2025-01-30 12:23] LABS: Alanine Aminotransferase 280 U/L (6-35); Albumin Level 4.9 g/dL (3.5-5.1); Alkaline Phosphatase 71 U/L (38-126); Anion Gap 9 mmol/L (4-12); Aspartate Amino Transferase 76 U/L (14-36); Bilirubin,Total 1.0 mg/dL (0.2-1.3); Blood Urea Nitrogen 13 mg/dL (7-17); Calcium 9.5 mg/dL (8.4-10.2); Carbon Dioxide 25 mmol/L (22-30); Chloride 104 mmol/L (98-107); Estimated CRCL calculation 83 ml/min; Estimated Glomerular Filt Rate > 60; Glucose 102 mg/dL (65-110); Potassium 4.1 mmol/L (3.4-5.0); Sodium 138 mmol/L (137-145); Total Protein 9.0 g/dL (6.3-8.2)
[2025-01-30] MEDS: KETOROLAC 15 MG/ML VIAL (*BKC) IV PUSH (12:37)
[2025-01-30] MEDS: LACTATED RINGERS 1,000 ML 999 ML IV CONT (12:38)
[2025-01-30 12:47] VITALS: BP 127/90; PULSE 130; PULSE 131; RESP 20; O2SAT 99
[2025-01-30] MEDS: METOPROLOL TARTRATE INJ 5 MG/5 ML VIAL IV PUSH (12:47)
--- NOTE | 2025-01-30 12:47 | PC.NURSE ---
1 mg metoprolol given HR130 B/P 127/90
--- NOTE | 2025-01-30 12:49 | PC.NURSE ---
2 mg metoprolol given HR 124 B/P 125/75
--- NOTE | 2025-01-30 12:50 | PC.NURSE ---
3 mg metoprolol given HR 124 B/P 118/73
--- NOTE | 2025-01-30 12:51 | PC.NURSE ---
1 mg metoprolol given HR 122 B/P 121/80
--- NOTE | 2025-01-30 12:53 | PC.NURSE ---
3 mg metoprolol given Hr 120 B/P 121/80
--- NOTE | 2025-01-30 12:54 | PC.NURSE ---
3 mg metoprolol given Hr 120 b/p 121/77
[2025-01-30 12:57] VITALS: TEMP 38.4
[2025-01-30] MEDS: ACETAMINOPHEN 500 MG TABLET 1000 MG PO (13:03)
--- OUTSIDE RECORDS SUMMARY | 2025-01-30 13:13 | XMS_ITS | Encounter Summary ---
Author Organization [facility] Address [address] [place] [address] Phone Care Team Providers Care High School Hvac R Instructor Name Role Phone Linda Niño MD Unavailable [phone] Nancy Marquez MD Primary Care Provide r Mansi Modi NP Unavailable [phone] Reason for Referral * Diagnostic Imaging (Routine) - Pending Review Specialty Diagnoses / Procedures Referred By Contac t Referred To Contact Diagnoses Leg swelling Procedures US Vein Duplex Lower Extremity Bilateral Complete Tri Jaramillo MD [address] [place] [address] Phone: tel: fax: [facility] (All Locations) Referral ID Status Reason Start Date Expiration Date V isits Requested Visits Authorized [id number] Pending Review 01/29/2025 02/28/2026 1 1 APPRAISER Encounter Details Date Type Department Care Team (Late st Contact Info) Description 01/29/2025 Orders Only [facility] Medicine Rheumatology [facility] Advanced Medicine 5th [place] [address] [place] [address] Tri Jaramillo MD [address] [place] [address] Leg swelling (Primary Dx) Social [...] often do you attend chur ch or congregational services? Never 07/27/2023 Do you belong to any clubs o r organizations such as episcopal groups, unions, fraternal or athletic groups, or [...] staff should administer the PHQ-9) 0 12/11/2024 [facility] of Occupat ional Health - Occupational Stress [...] place to sleep or slept in a snf (including now)? 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
--- OUTSIDE RECORDS SUMMARY | 2025-01-30 13:13 | XMS_ITS | Encounter Summary ---
Author Organization [facility] Address [address] [place] [address] Phone Care Team Providers Care Circular Sawyer Helper Name Role Phone Linda Niño MD Unavailable [phone] Nancy Marquez MD Primary Care Provide r Mansi Modi NP Unavailable [phone] Encounter Details Date Type Department Care Team (Late st Contact Info) Description 01/15/2025 Telephone [facility] Medicine Cardiology [address] [facility] Advanced Medicine 8th [place] [address] [place] [address] Nancy Modi Social History Tobacco [...] often do you attend chur ch or mormonism services? Never 07/27/2023 Do you belong to any clubs o r organizations such as mosque groups, unions, fraternal or athletic groups, or [...] staff should administer the PHQ-9) 0 12/11/2024 [facility] of Occupat ional [facility] - Occupational Stress Questionnaire Answer Date Recorded [...] place to sleep or slept in a custodial (including now)? 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 Holter in [facility] H COLLECTOR TRUCK DRIVER * Telephone Encounter - Nancy Modi - 01/15/2025 11:36 AM CST CARDIOLOGY NEW PATIENT RECORDS REVIEW Insurance Information Insurance Library Insurance Provider: Member ID: Group number: Diagnosis and Referring Provider Information (Check for Referrals in [facility]) Cardiac Diagnosis: R00.0 (ICD-10-CM) - Tachycardia with heart rate 100-120 beats per minute Z87.898 (ICD-10-CM) - History of chest pain Referring Provider: PCP Referring Provider Specialty: Referring Provider Phone: Current/Former Sky Diver (if different from referring provider): Current/Former Sky Diver Phone: Questions to Determine Placement for Specialty Clinics Cardiology-Oncology (For new amyloidosis referrals, complete RRS and send to NEW PT POOL and send an encounter to the [facility] to make them aware.) Are you actively [...] have an implantable cardiac device: no Type: Chief Estimator: When: Where: Appointment Details Date: 02/07/25 Time: 3:00 PM Location: [facility] Provider: Clarisa H COLLECTOR TRUCK DRIVER documented in this encounter Plan of Treatment Not on file documented as of this encounter Visit Diagnoses Not on filedocumented in this encounter Care Teams Circular Sawyer Helper Relationship Specialty Start Date End Date Nancy Marquez MD [address] [place] [address] [address] PCP - General Family Medicine 06/29/22 Linda Niño MD [address] [place] [address] Referring Physician Ophthalmology 04/06/22 Mansi Modi NP [address] [place] [address] Nurse Practitioner Obstetrics and Gynecology 07/10/24 documented as of this encounter
--- OUTSIDE RECORDS SUMMARY | 2025-01-30 13:13 | XMS_ITS | Encounter Summary ---
Author Organization [facility] Address [address] [place] [address] Phone Care Team Providers Care Thermal Surfacing Machine Operator Name Role Phone Linda Niño MD Unavailable [phone] Nancy Marquez MD Primary Care Provide r Mansi Modi NP Unavailable [phone] Encounter Details Date Type Department Care Team (Latest Contact Info) Description 01/12/2025 Results Follow-Up [facility] Medicine Rheumatology [address] [facility] Advanced Medicine 5th [place] [address] [place] [address] Tri Jaramillo MD [address] [place] [address] CBC with auto differential, Comprehensive metabolic panel [...] often do you attend chur ch or presybeterian services? 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 Not on file Not on file documented as of this encounter Plan of Treatment Not on file documented as of this encounter Visit Diagnoses Not on filedocumented in this encounter Care Teams Thermal Surfacing Machine Operator Relationship Specialty Start Date End Date Nancy Marquez MD [address] [place] [address] [address] PCP - General Family Medicine 06/29/22 Linda Niño MD [address] [place] [address] Referring Physician Ophthalmology 04/06/22 Mansi Modi NP [address] [place] [address] Nurse Practitioner Obstetrics and Gynecology 07/10/24 documented as of this encounter
--- OUTSIDE RECORDS SUMMARY | 2025-01-30 13:13 | XMS_ITS | Data Portability ---
Author Organization [facility] Address [address] [place] [address] Care Team Providers Care Warehouse Guard Name Role Phone OPAL BECKHAM Primary Care Provider Assessment No assessment recorded. Plan of Treatment Reminders Order Date Submit Date Provider Last Modified By Organization Details Last Modified Time Details Appointments None recorded . Lab None recorded . Referral allergy referral - Please call patient to schedule appt. Thank you 2019 020 uriah Baez MD, [address], [place], [address], 0 08:26:08 ophthalm ologist referral - Please call patient to schedule appt. Thank you. 07/04/19 patient says she did not request a referral and she has an ophthalm ologist. Return to submit. bpw 2019 020 uriah Hargrove MD, [address] [facility], [place], [address], 0 08:04:28 Procedures None recorded . Surgeries None recorded . Imaging None recorded . Medication Orders Medrol (Guero) 4 mg tablets in a dose pack 2019 020 [facility] #[id number], [address], [place], [place], [id number], 0 09:11:22 tobramyc in 0.3 % eye drops 2019 020 [facility] #32145, [address], [place], [place], [id number], 0 09:11:43 Zithroma x Z-Guero 250 mg tablet 2019 020 [facility]25642, [address], [place], [place], [id number], 0 10:44:55 Patient TargetsNo targets recorded. Patient Instructions Encounter Date Encounter Id Patient Instructions Last Modified By Organization Details Last Modified Time 03/06/2019 [id number] cellulitis of th e eye: care instructions [facility] Not available 03/06/2019 12:02:52 04/06/2019 [id number] cellulitis: care instructions [facility] Not available 04/06/2019 11:12:38 Reason for Referral Finance Associate Referral for Cellulitis cellulitis Please call patient to schedule appt. Thank you. 07/04/19 patient says she did not request a referral and she has an computer systems analyst. Return to submit. bpw Referring Physician: Opal Beckham, Internal Medicine, Encounter Date: 04/06/2019 Allergy Referral for Allergi c contact dermatitis Please call patient to schedule appt. Thank you Referring Physician: Opal Beckham, Internal Medicine, Encounter Date: 04/28/2019 Results Created Date Observation Date Name Description Value Unit Range Abnormal Flag Note LastModifiedBy Organization Detail LastModifiedTime 10/29/19 22 10/28/2021 CT, orbit / sella / poste rior fossa / ear, w/wo contr ast No observ ation record ed. [facility] [address] [place], [address], 10/31/2021 18:21:47 12/07/19 22 12/05/2021 CT, head + orbit s, w/o contr ast No observ ation record ed. [facility] [address] [place], [address], 12/08/2021 14:59:49 Result Notes None recorded. Problems Name Problem SNOMED Code Status Onset Date Resolution Date Notes Provider Name and Address Organization Details Recorded Time Acne 24742844 Active Not Available [facility] 2 22:24:31 Multiple benign melanocytic nevi 475250767 Active Not Available [facility] 2 22:24:31 Problem Notes None recorded. Procedures Surgical History Date Name Laterality Status Provider Name and Address Organization Details Recorded Time 03/01/19 15 Screening pap smear by phys completed Giovanny Garza MA [facility] 11/01/2014 12:00:55 Tonsillectomy completed Giovanny Garza MA [facility] 11/01/2014 12:00:55 Imaging Results None recorded. Procedure Notes None recorded. Medical Equipment None Reported. Allergies Allergen ID Allergen Name Allergen Category Reaction Reaction Severity Criticality Documentation Date Start Date Code Code System Note Provider Name and Address Organization Details Recorded Time 221074 clindamyc in Not available hives Not available Not available 03/06/2019 2582 RxNorm RASHEED Chambres [place] - [facility] 0 11:43:54 69187 latex environme nt,medica tion Not available Not available Not available 11/01/2014 13052 91 RxNorm RASHEED Chambers [facility] - [facility] 5 12:00:55 16731 amoxicill in medicatio n Not available Not available Not available 11/01/2014 723 RxNorm RASHEED Chambers [facility] - [facility] 5 12:00:55 79525 Product containin g penicilli n (product) medicatio n Not available Not available Not available 11/01/2014 14196 8001 SNOMED RASHEED Chambers [facility] - [facility] 5 12:00:55 29069 peach food Not available Not available Not available 11/01/2014 RASHEED Chambers [facility] - [facility] 5 12:00:55 22774 kiwi fruit extract food Not available Not available Not available 11/01/2014 75764 01 RxNorm RASHEED Chambers [facility] - [facility] 5 12:00:55 55155 pyrethrin s medicatio n Not available Not available Not available 11/01/2014 8991 RxNorm Giovanny Garza MA null, [facility] 5 12:00:55 85619 permethri n medicatio n Not available Not available Not available 11/01/2014 98201 RxNorm Giovanny Garza MA null, [facility] 5 12:00:55 69871 doxycycli ne Not available irregular heart rate moderate Not available 12/27/2015 3640 RxNorm Opal Beckham MD Attn: Bob varma,[address] [facility], [place], [address] 6 12:00:53 Medications Name Sig Start Date Stop Date Status Note LastModified by Organization Details LastModified Time cyclobenzap rine 10 mg tablet 03/06 completed Not Available Not Available Not Available azithromyci n 250 mg tablet TAKE 2 TABLETS (500 MG) BY ORAL ROUTE ONCE DAILY FOR 1 DAY THEN 1 TABLET (250 MG) BY ORAL ROUTE ONCE DAILY FOR 4 DAYS 04/06 completed Not Available Not Available Not Available ofloxacin 0.3 % eye drops 03/06 completed Not Available Not Available Not Available sulfamethox azole 400 mg-trimetho prim 80 mg tablet 06/12 completed Not Available Not Available Not Available prednisone 20 mg tablet 03/06 completed Not Available Not Available Not Available clindamycin HCl 150 mg capsule 03/06 completed Not Available Not Available Not Available sulfamethox azole 800 mg-trimetho prim 160 mg tablet 06/12 completed Not Available Not Available Not Available oxycodone-a cetaminophe n 5 mg-325 mg tablet 03/06 completed Not Available Not Available Not Available prednisolon e acetate 1 % eye drops,suspe nsion 06/12 completed Not Available Not Available Not Available baclofen 10 mg tablet Take 1 tablet 3 times a day by oral route after meals for 30 days. 03/06 completed Not Available Not Available Not Available doxycycline monohydrate 100 mg capsule 03/06 completed Not Available Not Available Not Available erythromyci n 5 mg/gram (0.5 %) eye ointment active Not Available Not Available Not Available tobramycin 0.3 % eye drops INSTILL 1 DROP INTO AFFECTED EYE(S) BY OPHTHALMI C ROUTE EVERY 4 HOURS 06/12 completed Not Available Not Available Not Available polymyxin B sulfate 10,000 unit-trimet hoprim 1 mg/mL eye drops 06/12 completed Not Available Not Available Not Available Banophen 25 mg capsule 03/06 completed Not Available Not Available Not Available ibuprofen 600 mg tablet 03/06 completed Not Available Not Available Not Available benzoyl peroxide 5 % topical cleanser 03/06 completed Not Available Not Available Not Available methylpredn isolone 4 mg tablets in a dose pack Take 1 tablet every day by oral route as directed for 6 days. 06/12 completed Not Available Not Available Not Available tobramycin 0.3 %-dexametha sone 0.1 % eye drops,suspe nsion 06/12 completed Not Available Not Available Not Available clindamycin 1 % lotion 03/06 completed Not Available Not Available Not Available nitrofurant oin monohydrate /macrocryst als 100 mg capsule 03/06 completed Not Available Not Available Not Available Oly Allergy 180 mg tablet active Not Available Not Available No t Available Nexplanon active Not Available Not Jeanne ilable Not Available Ophelia Fe 1.5/30 (28) 1.5 mg-30 mcg (21)/75 mg (7) tablet 03/06 completed Not Available Not Available Not Available Vitals Date Recorded Body height Body mass index (BMI) Body weight Body temperature Oxygen saturation Heart rate Systolic And Diastolic Provider Name and Address Organization Details Last Updated DateTime 0 161.29 cm 28.8 kg/m2 82413.7 4 g 97.6 [degF] 99 % 93 /min 126/82 mm[Hg] Giovanny Garza MA [facility] 0 11:51:06 Date Recorded Body height Body mass index (BMI) Body weight Body temperature Oxygen saturation Heart rate Systolic And Diastolic Provider Name and Address Organization Details Last Updated DateTime 0 161.29 cm 28.9 kg/m2 78660.6 1 g 97.4 [degF] 98 % 105 /min 116/60 mm[Hg] Giovanny Garza MA [facility] 0 10:49:47 Date Recorded Body height Body mass index (BMI) Body weight Body temperature Oxygen saturation Heart rate Systolic And Diastolic Provider Name and Address Organization Details Last Updated DateTime 0 161.29 cm 28.7 kg/m2 75511.0 2 g 98.2 [degF] 98 % 108 /min 118/86 mm[Hg] Giovanny Garza MA [facility] 0 10:44:20 Date Recorded Body height Provider Name an d Address Organization Details Last Updated DateTime 06/13/2019 161.29 cm Linda RASHEED Arreola [facility] 2019 09:14:33 Social History Question Answer Notes LastModified by [employer] Details LastModified Time Tobacco Smoking Status Never Smoker Alexia Manning MA null, [facility] 12/27/2015 10:21:57 What Was The Date Of Your Most Recent Tobacco Screening? 06/26/2019 [email or web address] Information not available 06/26/2019 Sex: Unknown Functional Status Question Answer Note LastModified by [employer] Details LastModified Time What is your level of alcohol consumption? Occasional Information not available 11/01/2014 Mental Status None recorded. Family History Relationship Description Onset Age of this Age Resolved Age Notes LastModified by Organization Details LastModified Time Mother Asthma Not available 11/01/2014 12:00:55 Mother Hypertensive disorder Not available 11/01 12:00:55 Mother Migraine Not availab le 11/01/2014 12:00:55 Father Harmful pattern of use of alcohol Not available 11/01 12:00:55 Sister Migraine Not availab le 11/01/2014 12:00:55 Medical History Condition Response Headaches Y Asthma Y Allergies Y Gynecological History Statement/Question Response Date of LMP 03/30/2019 Obstetrics History GPAL:G 0 P 0 0 0 0 Past Encounters Encounter ID Performer Location Encounter Start Date Encounter Closed Date Diagnosis/Indication Diagnosis SNOMED-CT Code Diagnosis ICD10 Code Diagnosis IMO Codes Diagnosis Note [id number] MD Nickie Perez (Adult Med) [address] [place] [phone] 11/01/2014 11:18:24 11/01/2014 16:07:58 Adult health examination 438928157 Acne 84069009 Multiple b enign melanocytic nevi 785512095 [id number] Opal Beckham MD [facility] (Adult Med) [address] [place] [address] 12/27/2015 10:02:00 12/27/2015 12:27:43 Chronic neck pain 9295200433 107 M54.2 Chronic th oracic back pain 1727895005 16215 M54.6 Pain radia ting to right shoulder 446434735 M25.511 Sore throat 570005447 J0 2.9 [id number] Opal Beckham MD [facility] (Adult Med) [address] [place] [phone] 03/06/2019 11:13:15 03/07/2019 13:17:37 Cellulitis of eyelid 864324722 H00.039 Discussed with patient, optional ophthalmol ogist referral. [id number] [facility] [address] [place] [phone] 04/06/2019 10:10:11 04/07/2019 10:37:37 Cellulitis 237370386 L03.90 Discussed with patient, she planes to move out the current APARTMENT. [id number] [facility] [address] [place] [phone] 04/28/2019 10:23:32 04/28/2019 11:24:48 Allergic contact dermatitis 005124702 L23.9 Discussed with patient, shr agreed for the medication and referral. [id number] RAISA FERNANDEZ (Adult Med) [address] [place] [id number] 06/13/2019 09:10:48 06/22/2019 15:16:21 Upper respiratory infection 62824197 J06.9 She was sick last week with low grade fever (Max 100), body aches, sore throat, and swollen lymph nodes.Her symptoms lasted about 2 days and all went away on 06/10/2019, she has been feeling back to normal since. She went back to work yesterday but needs a note for work stating she is safe to return to work.- no medication needed at this time since feeling back to normal- will send work note to patient's home- keep f/u with PCP for later this month [id number] Opal Beckham MD [facility] (Adult Med) [address] [place] [address] 06/26/2019 12:38:50 06/27/2019 14:03:08 Allergic contact dermatitis 110421815 L23.9 Discussed with patient, shr agreed for the medication and referral. one eye lid. Health Concerns Section Related Observation LastModified by Organization Detai ls LastModified Time None Recorded Concern Status LastModified by Organization Details LastModified Time None Recorded Advance Directives Directive None Recorded Payers Insurance Date Sequence Insurance Name Policy Number Policy Ward Covered Member ID Ward Member ID Guarantor Name 06/23/2019 1 [facility] - DOS PRIOR TO 2020 (MEDICAID REPLACEMENT - HMO) Marisabel Taf [id number] [place] T[place] 03/03/2019 1 [facility] (MEDICAID HMO) Marisabel Taff [id number] [place] Taf Notes Date Note Type Note Provider Name and Address Organization Details Recorded Time 03/06/2019 text/html ROS as noted in the HPI Swelling and redness of right upper eye lid for about one month, had gone to Urgent care, got doxycyclin but in vain, Allergic to amoxicillin, clindamycin, kiwi, latex, peach, penicillins, permethrin and pyrethrin. Opal Beckham MD Attn: [address] [place], [address], [facility] 03/06/2019 12:02:57 04/06/2019 text/html ROS as noted in the HPI She has some improvement of swelling of right eye upper lid after finishing the antibiotics and eye drop, but lately has had swelling anf d itching , she used OTC allergy eye drop seems helping, will refer to opthalmology, she agreed, she discovered themold in the apartment where she lives. List of allerg reviewed. Opal Beckham MD Attn: [address] [place], [address], [facility] 04/06/2019 11:13:09 04/28/2019 text/html ROS as noted in the HPI Swelling and itching on the right upper eye lid,has tried several rounds of antibiotics and also saw a computer systems analyst recently and was told to have allergy otherwise nothing wrong with eye, wanting to be referred to conductor orchestra as well, lists of allergy reviewed, not . Opal Beckham MD Attn: [address] [place], [address], [facility] 04/28/2019 11:24:24 06/13/2019 text/html ROS as noted in the HPI 28 year old presents today for phone visit. She was sick last week with low grade fever (Max 100), body aches, sore throat, and swollen lymph nodes. Her symptoms lasted about 2 days and all went away on 06/10/2019, she has been feeling back to normal since. She went back to work yesterday but needs a note for work stating she is safe to return to work. Today, denies fever, chills, nausea vomiting, sore throat, ear pain, cough, SOB, rash, diarrhea, constipation, and dysuria. RAISA FERNANDEZ Attn: Accounting[address] [place], [address], [facility] 06/13/2019 09:27:20 06/26/2019 text/html ROS as noted in the HPI On some allergy pill for the redness and some swelling of eye lid. allergic to amoxicillin, clindamycin, doxycycline, kiwi, latex , peach, penicillins, permethrin and pyrethrines. Opal Beckham MD Attn: Accounting[address] [place], [address], [facility] 06/27/2019 14:03:06 OBGyn Episode No OBEpisode recorded.
--- OUTSIDE RECORDS SUMMARY | 2025-01-30 13:13 | XMS_ITS | Clinical Summary ---
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
--- OUTSIDE RECORDS SUMMARY | 2025-01-30 13:13 | XMS_ITS | Clinical Summary ---
Author Organization [facility] Address [address] [place] [id number] Care Team Providers Care Director Radio News Name Role Phone Linda Niño MD Unavailable [phone] Nancy Marquez MD Primary Care Provide r Mansi Modi NP Unavailable [phone] Allergies Active Allergy Reactions Criticality Noted [...] recommended. Assessment & Plan (03/28/2024 3:32 PM GREENHOUSE LABORER): She was counseled on the importance of [...] months Assessment & Plan (03/28/2024 3:58 PM GREENHOUSE LABORER): New concern Associated symptoms Chronic Not at [...] visit Assessment & Plan (03/28/2024 4:01 PM GREENHOUSE LABORER): Chronic Not at goal ISHAN-7 Feeling nervous, [...] 06/29/2022 Assessment & Plan (03/27/2024 12:33 PM GREENHOUSE LABORER): Stable / clinically quiescent. Will continue to monitor. Assessment & Plan (06/29/2022 10:17 AM CDT): Stable / clinically quiescent. Will continue to monitor. Mild intermittent asthma without complication Assessment & Plan (03/27/2024 12:34 PM GREENHOUSE LABORER): She has not needed an inhaler in years Continue albuterol inhaler for as needed Assessment & Plan (06/29/2022 10:19 AM CDT): She has not needed an inhaler in years Will send an albuterol inhaler for as needed Urticaria 06/29/2022 Assessment & Plan (06/29/2022 10:43 AM CDT): Stable Continue with immanuel and benadryl Follow-up with block sealer. Encounter for wellness examination 06/25/2022 Assessment & Plan (12/11/2024 3:35 PM CDT): Orders: CBC with auto differential; Future Comprehensive metabolic panel; Future Hemoglobin A1c; Future Lipid panel; Future Thyroid Function [place]; Future Assessment & Plan (03/28/2024 4:02 PM GREENHOUSE LABORER): Order CBC, cmp, lipid, hgb a1c, TSH [...] 04/03/2024 Assessment & Plan (01/08/2025 4:22 PM GREENHOUSE LABORER): IOP is at target today given thick [...] 04/2025 Assessment & Plan (04/04/2024 8:37 PM GREENHOUSE LABORER): Previously elevated IOP (28 mmHg) managed with [...] 04/2025 Assessment & Plan (02/01/2024 10:23 PM GREENHOUSE LABORER): Thick corneas, normal HVF today. If RNFL [...] eyes. Assessment & Plan (02/23/2023 8:30 AM GREENHOUSE LABORER): IOPs adequate off drops, monitor Assessment & [...] OU Assessment & Plan (05/01/2022 8:04 AM GREENHOUSE LABORER): Start Cosopt BID OU Have eye pressure [...] months Assessment & Plan (05/02/2022 10:37 AM GREENHOUSE LABORER): Lab Results Component Value Date WBC 4.9 [...] months Assessment & Plan (04/17/2022 3:12 PM GREENHOUSE LABORER): Lab Results Component Value Date WBC 4.9 [...] 12/26/2021 Assessment & Plan (01/08/2025 4:21 PM GREENHOUSE LABORER): She has no active inflammation today, just [...] resolves. Assessment & Plan (04/04/2024 8:37 PM GREENHOUSE LABORER): She has no active inflammation today. Consider taper of adalimumab in coordination with business instructor. Recommend gradual taper based on evidence in uveitis, would do this in June - Recommend taper of adalimumab in June by spacing doses to every three weeks for three months, then every four weeks for three months, then discontinue Assessment & Plan (03/27/2024 12:33 PM GREENHOUSE LABORER): Cont following with specialist for management Assessment & Plan (02/01/2024 10:24 PM GREENHOUSE LABORER): She has no active inflammation today on [...] point. Assessment & Plan (02/23/2023 8:26 AM GREENHOUSE LABORER): Quiet on Humira, no lid edema. 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 S/p orbitotomy biopsy 01/27/22 [...] Remicade Assessment & Plan (04/17/2022 3:09 PM GREENHOUSE LABORER): Undifferentiated vs IgG4 S/p orbitotomy biopsy 01/27/22 [...] 10/06/2024 Assessment & Plan (03/28/2024 3:39 PM GREENHOUSE LABORER): Stable On humira Continue management as per [...] (01/02/2022): Added automatically from request for surgery [id number] Encounters Date Type Department Care Team Description 01/29/2025 Orders Only [facility] Medicine Rheumatology [address] [facility] [address] [place] [address] [place] [address] Tri Jaramillo MD Leg swelling (Primary Dx) 01/15/2025 Telephone [facility] Medicine Cardiology [address] [facility] 8[address] [place] [address] [place] [address] Nancy Modi 01/12/2025 Results Follow-Up [facility] Medicine Rheumatology [address] [facility] [address] [place] [address] [place] [address] Tri Jaramillo MD CBC with auto differential, Comprehensive metabolic panel 01/12/2025 Orders Only [facility] Medicine Rheumatology [address] [place] [address] [place] [address] Tri Jaramillo MD 01/10/2025 8:46 AM GREENHOUSE LABORER - 01/10/2025 11:59 PM GREENHOUSE LABORER Hospital Encounter [facility] [address] [place] [address] History of multiple miscarriages Discharge Disposition: Discharge to home or self care 01/10/2025 8:30 AM GREENHOUSE LABORER Lab [facility] Medicine Endocrinology Metabolism and Lipid [address] [place] [address] [place] [address] High risk medication use 01/10/2025 8:00 AM GREENHOUSE LABORER Office Visit [facility] Medicine Rheumatology [address] [place] [address] [place] [address] Tri Jaramillo MD Orbital inflammation, chronic (Primary Dx); Uveitis; High risk medication use; Encounter for administration of vaccine; History of multiple miscarriages 01/08/2025 3:30 PM GREENHOUSE LABORER Office Visit [facility] Medicine Ophthalmology [address] [place] [phone] Piotr Mathur MD Orbital inflammation, chronic (Primary Dx); Bilateral ocular hypertension 12/11/2024 2:00 PM CDT Office Visit [facility] Primary Care at [address] [place] [address] Nancy Lofton MD Tachycardia with heart rate 100-120 beats per minute (Primary Dx); Anxiety; Class 1 obesity due to excess calories without serious comorbidity with body mass index (BMI) of 34.0 to 34.9 in adult; Encounter for wellness examination 12/11/2024 Orders Only [facility] Primary Care at [address] [place] [address] Nancy Lofton MD Tachycardia with heart rate 100-120 beats per minute (Primary Dx); History of chest pain 11/22/2024 Telephone [facility] [address] [facility] [address] [place] [address] [facility] from Last 3 Months Immunizations Immunization Administration [...] Father chey green Drug abuse Father chey rgeen Hepatitis Father chey green Cancer Father's Brother [...] often do you attend chur ch or orthodox services? 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 Not on file Not on file Obstetrics History Para Term AB IAB SAB Ectopic Multiple Livin g Live Births 4 4 3 1 Date Outcome GA Total Labor Labor/2nd/3rd Weight Sex Type Anes PTL Marianne A1 A5 Name Clin SAB SAB SAB Ectopic Last Filed Vital Signs Vital Sign Reading Time Taken Comments Blood Pressure 136/82 01/10/2025 7:54 AM GREENHOUSE LABORER Pulse 116 01/10/2025 7:54 AM GREENHOUSE LABORER Temperature 36.7 C (98.1 F) 01/10/2025 7:54 AM GREENHOUSE LABORER Respiratory Rate 16 12/11/2024 1:45 PM CDT Oxygen Saturation 99% 12/11/2024 1:45 PM CDT Inhaled Oxygen Concentration - - Weight 84.4 kg (186 lb) 01/10/2025 7:54 AM GREENHOUSE LABORER Height 154.9 cm (5' 1) 01/10/2025 7:54 AM GREENHOUSE LABORER Body Mass Index 35.14 01/10/2025 7:54 AM GREENHOUSE LABORER Plan of Treatment Health Maintenance Due Date [...] Vaccines Discontinued Medical Devices Implanted Type Area Medical Technologist Device Identifier Shelf Expiration Date Model / Serial / Lot Nexplanon Left: Arm Description: control Procedures Procedure Name Priority Date/Time Associated Diagnosis Comments LUPUS ANTICOAGULANT PANEL PLUS REFLEXES Routine 01/10/2025 8:46 AM GREENHOUSE LABORER History of multiple miscarriages COMPREHENSIVE METABOLIC PANEL Routine 01/10/2025 8:46 AM GREENHOUSE LABORER High risk medication use CBC WITH AUTO DIFFERENTIAL Routine 01/10/2025 8:46 AM GREENHOUSE LABORER High risk medication use HEPATITIS C ANTIBODY Routine 07/07/2022 8:50 AM CDT Screening for viral disease from Last 3 Months or Most Recently Relevant to Health Maintenance Results * Lupus Anticoagulant Panel plus Reflexes (01/10/2025 8:46 AM GREENHOUSE LABORER) PT 10.8 10.2 - 13.5 sec INR 0.95 0.90 - 1.20 MED [facility] Comment: Interpretive data Oral anticoagulant therapeutic ranges: Venous thromboembolism prophylaxis or treatment: 2.0-3.0 CARDIOLOGY Standard range: 2.0-3.0 High-intensity range: 2.5-3.5 Refer to indication-specific guidelines for appropriate target ranges for prosthetic heart valve replacement. Current interpretive data was last revised on 2019. aPTT 28 26 - 38 sec [facility] Comment: Interpretive Data Heparin therapeutic range: 66.0 - 100.0 seconds. Range based on correlation with therapeutic heparin activity range of 0.3 - 0.7 Units/mL. DRVVT screen ratio 0.96 0.00 - 1.20 Ratio [facility] SCT Screen Ratio 0.91 0.00 - 1.16 Ratio [facility] Lupus anticoagulant, interp Negative [facility] Comment: Interpretive data Lupus anticoagulants (LA) [...] lupus anticoagulant detection. J Thromb Haemost. 2009; 7:7656-3612. 2. Omega Brandt et al. International consensus statement on an update of the classification criteria for definite antiphospholipid syndrome (APS). J Thromb Haemost. 2006; 4:295-306. Current interpretive data was last revised on 2018 Blood 01/10/2025 8:46 AM GREENHOUSE LABORER 01/10/2025 10:38 AM GREENHOUSE LABORER us Tri Jaramillo MD LAB BLOOD ORDERABLES Carmen lim Result [facility] [address] [facility] [place] [address] * (ABNORMAL) CBC with auto differential (01/10/2025 8:46 AM GREENHOUSE LABORER) White Blood Count 8.4 3.6 - 11.2 [...] [facility] Blood 01/10/2025 8:46 AM GREENHOUSE LABORER 01/10/2025 9:32 AM GREENHOUSE LABORER us Tri Jaramillo MD LAB BLOOD ORDERABLES Carmen l Result [facility] * (ABNORMAL) Comprehensive metabolic panel (01/10/2025 8:46 AM GREENHOUSE LABORER) Total Protein 7.2 6.1 - 8.4 g/dL [...] [facility] Blood 01/10/2025 8:46 AM GREENHOUSE LABORER 01/10/2025 9:32 AM GREENHOUSE LABORER Narrative [facility] - 01/10/2025 11:20 AM GREENHOUSE LABORER Specimen Hemolyzed Tri Jaramillo MD LAB BLOOD ORDERABLES Carmen l Result [facility] * [...] last revised on 2019. Testing performed by: [facility], [address] [place] [address]., [id number] Blood 07/07/2022 8:50 AM CDT 07/07/2022 3:26 PM CDT Misa Leslie MD PhD LAB MICROBIOL OGY - GENERAL ORDERABLES Edited Result - Final [facility]) [address] [facility] Department [place] [address] from Last 3 Months or Most Recently Relevant to Health Maintenance Insurance [address] [place] [address] [facility] HMO [facility] [place] HMO Care Teams Director Radio News Relationship Specialty Start Date End Date Nancy Marquez MD [address] [place] [address] [address] PCP - General Family Medicine 06/29/22 Linda Niño MD [address] [place] [address] Referring Physician Ophthalmology 04/06/22 Mansi Modi NP [address] [place] [id number] Nurse Practitioner Obstetrics and Gynecology 07/10/24
[2025-01-30 13:46] LABS: Strep Group A RT-PCR NOT DETECTED (Negative)
[2025-01-30 13:58] LABS: Influenza A QL RT-PCR Negative (Negative); Influenza B QL RT-PCR Negative (Negative); RSV RNA, RT-PCR Negative (Negative); SARS-CoV-2 RNA PCR Negative (Negative)
--- NOTE | 2025-01-30 16:15 | ED_ITS ---
HPI - Extremity Problem General Chief complaint: Extremity Problem,Nontraumatic Stated complaint: knots on legs Time Seen by Provider: 01/30/25 11:20 History of Present Illness HPI Narrative: Patient with history of uveitis on Humira presents here after noticing painful knot on both of her legs. Has never had this happen in the past. She does have a rapid heart rate here but she states that this is normal for her, she is taking metoprolol for tachycardia. She does have some chills and some slight shortness of breath. Related Data Allergies Allergy/AdvReac Type Severity Reaction Status Date / Time cephalexin Allergy Hives Verified 01/30/25 11:00 clindamycin Allergy Hives Verified 01/30/25 11:00 hydrocodone Allergy Hives Verified 01/30/25 11:00 Review of Systems 2 Review of Systems: per HPI Exam 2 Narrative: EXAMINATION OF ORGAN SYSTEMS/BODY AREAS: Constitutional: Vital signs per nursing GENERAL:[No acute distress, non-toxic appearing.] HEAD: Normal with no signs of head trauma. EYES: EOMI, conjunctiva normal ENT: Hearing grossly intact LUNGS: Nonlabored breathing. HEART: Tachycardic ABD: [Soft], [nontender to palpation] EXT: Normal range of motion; multiple painful reddish nodules on bilateral legs SKIN: See above NEURO: [Alert. No gross focal sensory or strength deficits.] PSYCH: Normal affect Course Vital Signs Vital signs: Vital Signs Temperature 97.9 F 01/30/25 11:02 Pulse Rate 141 H 01/30/25 11:02 Respiratory Rate 18 01/30/25 11:02 Blood Pressure 124/81 01/30/25 11:02 Pulse Oximetry 100 01/30/25 11:02 Temperature 101.1 F H 01/30/25 12:57 Pulse Rate 131 H 01/30/25 12:47 Respiratory Rate 20 01/30/25 12:47 Blood Pressure 127/90 01/30/25 12:47 Pulse Oximetry 99 01/30/25 12:47 MDM MDM Narrative Medical decision making narrative: Patient presents with multiple painful lesions to her legs, she also has some slight chills and shortness of breath. No abdominal pain, nausea, dysuria, chest pain She is tachycardic, exam consistent with erythema nodosum, she does have uveitis, I will also rule out pneumonia or other infections. Chest x-ray is clear, she did then started fever, given Tylenol and Toradol and IV fluids. Given small dose of metoprolol. She does have elevated white count of 17. No obvious source. LFTs are also elevated but she has no abdominal pain. At this point, she on re-evaluation is feeling much better, would like to go home; I have asked her to follow-up with her administrative volunteer for further workup as needed, will trial of NSAIDs and steroids, with return precautions. Patient agreeable to this plan. At time of discharge, repeat heart rate on telemetry is now 120. States that this is her normal heart rate. Differential Diagnosis Differential Diagnosis: Erythema nodosum, URI, pneumonia, arrhythmia Lab Data 01/30/25 12:04 01/30/25 12:04 Labs: Lab Results 01/30/25 01/30/25 Range/Units 12:04 13:07 WBC 17.1 H (4.5-10.0) K/mm3 RBC 5.17 (4.2-5.4) M/mm3 Hgb 15.1 H (12.0-15.0) g/dL Hct 47.2 H (37.0-47.0) % MCV 91.3 (80-100) fl MCH 29.2 (26-34) pg MCHC 32.0 (32-36) g/dl RDW 13.3 (11.5-14.5) % Plt Count 438 H (150-375) k/mm3 MPV 9.6 (7.4-10.4) fl Immature Gran % (Auto) 0.6 H (0-0.5) % Neut % (Auto) 85.2 H (45.5-73.1) % Lymph % (Auto) 8.6 L (18.3-44.2) % Randall % (Auto) 4.6 (2.6-8.5) % Eos % (Auto) 0.7 (0-4.4) % Baso % (Auto) 0.3 (0.2-1.2) % Lymph # (Auto) 1.48 (0.9-3.2) K/mm3 Randall # (Auto) 0.8 H (0.1-0.6) K/mm3 Eos # (Auto) 0.1 (0-0.3) K/mm3 Baso # (Auto) 0.1 (0.0-0.1) K/mm3 Abs Immat Gran (auto) 0.10 H (0.00-0.031) K/mm3 Absolute Neuts (auto) 14.6 H (1.3-6.7) K/mm3 Absolute Nucleated RBC 0.000 (0.0-0.012) K/mm3 Nucleated RBC % 0.0 (0.0-0.2) % Sodium 138 (137-145) mmol/L Potassium 4.1 (3.4-5.0) mmol/L Chloride 104 (98-107) mmol/L Carbon Dioxide 25 (22-30) mmol/L Anion Gap 9 (4-12) mmol/L BUN 13 (7-17) mg/dL Creatinine 0.80 (0.7-1.0) mg/dL Estim Creat Clear Calc 83 ml/min Estimated GFR > 60 (59 - ) Glucose 102 (65-110) mg/dL Calcium 9.5 (8.4-10.2) mg/dL Total Bilirubin 1.0 (0.2-1.3) mg/dL AST 76 H (14-36) U/L ALT 280 H (6-35) U/L Alkaline Phosphatase 71 (38-126) U/L Total Protein 9.0 H (6.3-8.2) g/dL Albumin 4.9 (3.5-5.1) g/dL Influenza A (RT-PCR) Negative (Negative) Influenza B (RT-PCR) Negative (Negative) RSV (RT-PCR) Negative (Negative) SARS-CoV-2 RNA (RT-PCR) Negative (Negative) Group A Strep (PCR) Not detected (Negative) Imaging Data Radiologist's impression: ITS Impressions Chest X-Ray 01/30/25 12:17 Impression: No acute cardiopulmonary abnormality. Discharge Plan Discharge Clinical Impression: Erythema nodosum, Tachycardia, Transaminitis Patient Disposition: Home Condition: Stable Instructions: Transaminitis (ED) Additional Instructions: Please follow-up with your administrative volunteer. Take the medications as prescribed. Your liver enzymes were also elevated today. You will want to have them rechecked in the next few days. Please come back to the ER for any further issues. Patient Language: Yi Prescriptions: New prednisone 20 mg tablet 40 mg PO DAILY 4 Days Qty: 8 0RF acetaminophen [Tylenol Extra Strength] 500 mg tablet 1,000 mg PO Q6H PRN (Reason: pain) Qty: 50 0RF ibuprofen 600 mg tablet 600 mg PO TID PRN (Reason: fever or pain) Qty: 30 0RF Follow-up/Referrals: Alma,MD Nancy [Primary Care Provider, Unknown]
== END 2025-01-30 14:10 | disposition home or self-care (01) ==
PROVIDERS: Emergency Provider Emergency Medicine; PCP Family Medicine
DX: L52 Erythema nodosum (principal); R00.0 Tachycardia, unspecified; R74.01 Elevation of levels of liver transaminase levels; Z20.822 Contact with and (suspected) exposure to COVID-19; H20.9 Unspecified iridocyclitis; Z79.620 Long term (current) use of immunosuppressive biologic; R94.31 Abnormal electrocardiogram [ECG] [EKG]
CPT/HCPCS: 36415; 71046; 80053; 85025; 87637; 87651; 93005; 96361; 96374; 96375; 99284; A9270; J0616; J1885; J7120; J7512